=== PATIENT | female | born 2000 | race African-American/Black ===

== ENCOUNTER 2023-01-25 16:52 | Emergency (ER) | payer OTHER ==
[~2023-01-25] VITALS: Ht 152.4 cm; Wt 63.4 kg
[2023-01-25 16:53] VITALS: BP 134/73; TEMP 97.7; O2SAT 98
[2023-01-25] MEDS: METOCLOPRAMIDE INJ 10MG/2ML VIAL IV ONE (21:20)
[2023-01-25] MEDS: NS 1,000 ML IV ONE (21:20)
[2023-01-25] MEDS: ACETAMINOPHEN *IV* 1,000 MG in IV 1 EA IV ONE (21:55)
[2023-01-25 22:08] LABS: BASO % 0.2 % (0.0-1.0); EOS # 0.2 10^3/uL (0.0-0.5); EOS % 2.2 % (0.0-3.0); HEMATOCRIT 35.5 % (36.0-47.0); HEMOGLOBIN 12.3 g/dl (12.0-15.5); LYMPH # 2.4 10^3/uL (1.5-5.0); LYMPH % 24.4 % (24.0-44.0); MEAN CORPUSCULAR HGB CONC 34.6 g/dl (32.0-36.5); MEAN CORPUSCULAR VOLUME 92.4 fl (80.0-96.0); MONO # 0.6 10^3/uL (0.0-0.8); MONO % 5.8 % (2.0-8.0); NEUTROPHILS # 6.5 10^3/uL (1.5-8.5); NEUTROPHILS % 67.1 % (36.0-66.0); PLATELET COUNT, AUTOMATED 264 10^3/uL (150-450); RED BLOOD COUNT 3.84 10^6/uL (4.00-5.40); WHITE BLOOD COUNT 9.7 10^3/uL (4.0-10.0)
[2023-01-25 22:21] LABS: ALBUMIN 3.6 G/DL (3.2-5.2); ALKALINE PHOSPHATASE 51 U/L (46-116); ALT/SGPT 24 U/L (7.0-40); AST/SGOT 20 U/L (<34); BILIRUBIN,DIRECT < 0.1 MG/DL (<0.4); BILIRUBIN,TOTAL 0.3 MG/DL (0.3-1.2); MAGNESIUM LEVEL 1.9 MG/DL (1.8-2.4); TOTAL PROTEIN 6.7 G/DL (5.7-8.2)
== END 2023-01-25 23:28 | disposition home or self-care (01) ==
LOC: M ED 16:52
DX: O99.352 Diseases of the nervous system complicating pregnancy, second trimester (principal); R51.9 Headache, unspecified; Z3A.16 16 weeks gestation of pregnancy
CPT/HCPCS: 80047; 80076; 83735; 85025; 96365; 96375; 99284; J0131; J2765

== ENCOUNTER → 2023-04-25 | Outpatient (CLI) | payer OTHER | LOC: M RAD 13:54 | PROVIDERS: ATTEND Obstetrics & Gynecology | DX: O24.419 Gestational diabetes mellitus in pregnancy, unspecified control (principal); Z3A.25 25 weeks gestation of pregnancy ==

== ENCOUNTER → 2023-05-23 | Outpatient (CLI) | payer OTHER | LOC: M RAD 13:58 | PROVIDERS: ATTEND Obstetrics & Gynecology | DX: O24.419 Gestational diabetes mellitus in pregnancy, unspecified control (principal); Z3A.32 32 weeks gestation of pregnancy ==

== ENCOUNTER → 2023-06-20 | Outpatient (CLI) | payer OTHER | LOC: M RAD 14:05 | PROVIDERS: ATTEND Obstetrics & Gynecology | DX: O24.419 Gestational diabetes mellitus in pregnancy, unspecified control (principal); Z3A.36 36 weeks gestation of pregnancy ==

== ENCOUNTER 2023-06-30 20:03 | Outpatient (CLI) | payer OTHER ==
[~2023-06-30] VITALS: Ht 152.4 cm; Wt 77.7 kg
[2023-06-30] MEDS ORDERED: HOME MED LIST COMPLETE! XX SCH (20:15)
[2023-06-30 20:26] VITALS: BP 120/71
[2023-06-30] MEDS: FLUCONAZOLE 50MG TABLET PO ONE (21:25)
== END 2023-06-30 21:26 | disposition home or self-care (01) ==
LOC: M LDO 20:03
PROVIDERS: ATTEND Obstetrics & Gynecology
DX: O23.593 Infection of other part of genital tract in pregnancy, third trimester (principal); B37.9 Candidiasis, unspecified; Z3A.38 38 weeks gestation of pregnancy
CPT/HCPCS: 59025; 76815; G0463

== ENCOUNTER 2023-07-15 07:37 | Inpatient (IN) | payer OTHER ==
[2023-07-15] VITALS (16 sets, daily range): BP systolic 111–152; BP diastolic 60–85
[~2023-07-15] VITALS: Ht 152.4 cm; Wt 77.6 kg
[2023-07-15 08:52] LABS: HEMATOCRIT 34.1 % (36.0-47.0); MEAN CORPUSCULAR HEMOGLOBIN 28.6 pg (27.0-33.0); MEAN CORPUSCULAR HGB CONC 32.3 g/dl (32.0-36.5); MEAN CORPUSCULAR VOLUME 88.8 fl (80.0-96.0); PLATELET COUNT, AUTOMATED 297 10^3/uL (150-450); RED BLOOD COUNT 3.84 10^6/uL (4.00-5.40); WHITE BLOOD COUNT 10.5 10^3/uL (4.0-10.0)
[2023-07-15] MEDS ORDERED: OXYTOCIN DRIP 30 UNITS in IV 1 EA IV PRN (11:45)
[2023-07-15] MEDS ORDERED: TRANEXAMIC ACID INJection 1,000 MG in NS 100 ML IV PRN (11:45)
[2023-07-15] MEDS ORDERED: CARBOPROST TROMETHAMINE 250 MCG/ML AMP IM PRN (11:45)
[2023-07-15] MEDS ORDERED: LIDOCAINE 1% MDV 20ML VIAL INFIL PRN (11:45)
[2023-07-15] MEDS: miSOPROStol 50MCG 1/2 TABLET PO SCH (11:55)
[2023-07-15] MEDS ORDERED: PROMETHAZINE 25MG/ML 1ML VIAL IV PRN (21:40)
[2023-07-15] MEDS ORDERED: BUTORPHANOL 2 MG/ML 1ML VIAL IV PRN (22:00)
[2023-07-15] MEDS: PENICILLIN G POTASSIUM 5 MU IV 5 MU in D5W MINI-BAG PLUS 100 ML IV STA (23:07)
[2023-07-15] MEDS ORDERED: diphenhydrAMINE 50MG/ML VIAL IV PRN (23:10)
[2023-07-15] MEDS ORDERED: LR 500 ML IV PRN (23:10)
[2023-07-15] MEDS ORDERED: EPIDURAL/PCA KEYS XX PRN (23:10)
[2023-07-15] MEDS ORDERED: NALOXONE INJ 0.4MG/1ML VIAL IV PRN (23:10)
[2023-07-15] MEDS ORDERED: ONDANSETRON 4MG 2ML VIAL IV PRN (23:10)
[2023-07-16] VITALS (43 sets, daily range): BP systolic 110–154; BP diastolic 55–93; O2SAT 17–99
[2023-07-16] MEDS: LR 1,000 ML IV SCH ×2 (00:21→13:15)
[2023-07-16] MEDS: FENTANYL/ROPIVACAINE/NACL BAG 100 ML EPIDURAL SCH (00:25)
[2023-07-16] MEDS ORDERED: LR 1,000 ML IV SCH (01:00)
[2023-07-16] MEDS: ePHEDrine SULFATE 25 MG/5 ML(5MG/ML) SYRINGE IVP PRN (01:57)
[2023-07-16] MEDS: PEN G POT 3,000,000 UNIT/50 ML 3,000,000 UNIT in IV 1 EA IV SCH (03:24)
[2023-07-16] MEDS: OXYTOCIN DRIP 30 UNITS in IV 1 EA IV SCH ×2 (03:43→13:33)
[2023-07-16] MEDS: METHYLERGONOVINE MALEATE 0.2MG/ML 1ML VIAL IM PRN (12:58)
[2023-07-16] MEDS ORDERED: RHOGAM 300MCG (1500IU) INJ IM SCH (13:15)
[2023-07-16] MEDS ORDERED: ACETAMINOPHEN TAB 650MG DOSE (2X325MG) PO PRN (13:15)
[2023-07-16] MEDS ORDERED: METOCLOPRAMIDE INJ 10MG/2ML VIAL IV PRN (13:15)
[2023-07-16] MEDS ORDERED: ONDANSETRON 4MG 2ML VIAL IV PRN (13:15)
[2023-07-16] MEDS: IBUPROFEN 800 MG TAB PO PRN (14:04)
[2023-07-16] MEDS: ACETAMINOPHEN 500 MG TAB PO PRN (16:26)
[2023-07-16] MEDS: METHYLERGONOVINE MALEATE 0.2 MG TAB PO SCH (19:04)
[2023-07-16] MEDS: DIBUCAINE 1% OINTMENT 30GM TOP PRN (22:24)
[2023-07-16] MEDS: DOCUSATE SODIUM 100MG CAPSULE PO PRN (22:24)
[2023-07-17 06:00] VITALS: BP 112/69; O2SAT 97
[2023-07-17] MEDS: PRENATAL VITAMINS CHEWABLE TABLET PO SCH (08:18)
[2023-07-17 18:00] VITALS: BP 114/57; O2SAT 99
[2023-07-18] MEDS: IBUPROFEN 600MG TAB PO PRN (05:54)
[2023-07-18 06:00] VITALS: BP 132/66; O2SAT 98
[2023-07-18] MEDS: MEASLES,MUMPS,RUBELLA VACCINE INJ (MMR-II) SC.IMMUN ONE (07:14)
== END 2023-07-18 13:19 | disposition home or self-care (01) | DRG 807 ==
LOC: M LDI 07:37 → M OBS 07-16 14:44
PROVIDERS: ADMIT Obstetrics & Gynecology; ATTEND Obstetrics & Gynecology
PROC: 3E0P7GC Introduction of Other Therapeutic Substance into Female Reproductive, Via Natural or Artificial Opening (ICD-10-PCS; 2023-07-15)
PROC: 10E0XZZ Delivery of Products of Conception, External Approach (ICD-10-PCS; principal; 2023-07-16)
DX: O24.420 Gestational diabetes mellitus in childbirth, diet controlled (principal); Z37.0 Single live birth; O99.824 Streptococcus B carrier state complicating childbirth; Z3A.40 40 weeks gestation of pregnancy